=== PATIENT | male | born 1990 | race Caucasian/White ===

== ENCOUNTER 2016-06-22 12:59 | Emergency (ER) | payer SELFPAY ==
[~2016-06-22] VITALS: Wt 75.0 kg
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
[2016-06-22] MEDS ORDERED: IBUP-1542 PO (16:51)
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
== END 2016-06-22 17:08 | disposition home or self-care (01) ==
LOC: FTE 12:59
DX: S62.91XA Unspecified fracture of right hand, initial encounter for closed fracture (principal); V49.40XA Driver injured in collision with unspecified motor vehicles in traffic accident, initial encounter
CPT/HCPCS: 73200